=== PATIENT | male | born 1970 | race Asian ===

== ENCOUNTER 2024-12-30 00:24 | Emergency (ER) | payer BC, OTHER ==
[~2024-12-30] VITALS: Ht 165.1 cm; Wt 72.6 kg
[2024-12-30 01:13] LABS: BASOPHILS % (AUTO) 0.5 % (0.0-2.0); EOSINOPHILS # (AUTO) 0.2 K/uL (0.0-0.7); EOSINOPHILS % (AUTO) 1.7 % (0.0-6.0); HEMATOCRIT 45 % (39-51); HEMOGLOBIN 15.5 g/dL (13.5-17.5); LYMPHOCYTES # (AUTO) 2.9 K/uL (0.8-4.8); LYMPHOCYTES % (AUTO) 32.7 % (20.0-44.0); MEAN CORPUSCULAR HEMOGLOBIN 32 PG (26.0-33.0); MEAN CORPUSCULAR HGB CONC 35 g/dl (31.0-36.0); MEAN CORPUSCULAR VOLUME 92 fL (80-96); MONOCYTES # (AUTO) 0.5 K/uL (0.1-1.30); MONOCYTES % (AUTO) 5.8 % (2.0-12.0); NEUTROPHILS # (AUTO) 5.3 K/uL (1.8-8.9); NEUTROPHILS % (AUTO) 59.3 % (43.0-81.0); PLATELET COUNT (AUTO) 227 K/uL (150-450); RED BLOOD CELL COUNT(AUTO) 4.88 MIL/uL (4.5-6.0); RED CELL DISTRIBUTION WIDTH 13.1 % (11.5-15.0); WHITE BLOOD COUNT (AUTO) 8.9 K/uL (4.3-11.0)
[2024-12-30 01:25] LABS: CARBON DIOXIDE 30 mmol/L (21-32); CHLORIDE 104 mmol/L (98-107); GLUCOSE 108 mg/dL (74-106); POTASSIUM 4.4 mmol/L (3.5-5.1); SODIUM SERUM 139 mmol/L (136-145); UREA NITROGEN, BLOOD 12 mg/dL (7-18)
[2024-12-30 01:38] LABS: ALANINE AMINOTRANSFERASE 29 U/L (12-78); ALBUMIN 4.2 g/dL (3.4-5.0); ALKALINE PHOSPHATASE 66 U/L (46-116); ASPARTATE AMINOTRANSFERASE < 5 U/L (15-37); BILIRUBIN,TOTAL 0.4 mg/dL (0.2-1.0); NT-PRO BNP 26 pg/mL (0-125); TOTAL PROTEIN, SERUM 7.9 g/dL (6.4-8.2)
[2024-12-30 01:40] LABS: ABG BASE EXCESS -1.7 mmol/L (-2.0-3.0); ABG OXYGEN SATURATION 95.2 % (94.0-98.0); ABG PCO2 35.3 mmHg (35.0-48.0); ABG PH 7.415 (7.350-7.450); ABG PO2 78.6 mmHg (83.0-108.0); ABG TOTAL HEMOGLOBIN 16.4 G/dL (13.5-17.5); COHb 0.3 % (0.5-1.5); MetHb 0.2 % (0.0-1.5); O2Hb 94.7 % (94.0-97.0); SITE, ABG RIGHT RADIAL
[2024-12-30 04:21] VITALS: BP 156/92; TEMP 98.6; O2SAT 98
== END 2024-12-30 04:22 | disposition home or self-care (01) ==
LOC: ER 00:26
DX: R42 Dizziness and giddiness (principal); R51.9 Headache, unspecified; R06.02 Shortness of breath; I10 Essential (primary) hypertension
CPT/HCPCS: 36415; 36600; 70450-TC; 71045-TC; 80053-TC; 82803-TC; 83880; 84484-TC; 85025-TC; 85378-TC